=== PATIENT | female | born 1960 | race Caucasian/White ===

== ENCOUNTER 2020-01-12 12:38 | Inpatient (IN) | payer OTHER ==
[2020-01-12] MEDS ORDERED: PANTOPRAZOLE 40 MG/10 ML VIAL IVP STA (13:00)
[2020-01-12] MEDS ORDERED: ONDANSETRON 4 MG/2 ML VIAL IVP STA (13:00)
[2020-01-12] MEDS ORDERED: MORPHINE SULFATE 4 MG/ML SYRINGE IVP STA (13:05)
--- NOTE | 2020-01-12 13:34 | ED ---
Abdominal Pain HPI - General Chief Complaint: Abdominal Pain Stated Complaint: Chest and abd pain Time Seen by Provider: 01/12/20 12:58 Source: patient, RN notes reviewed, old records reviewed Mode of arrival: ambulatory Limitations: no limitations - History of Present Illness Initial Comments: This is a 59-year-old female DF for evaluation patient is a poor strain secondary to severe pain severe epigastric pain abdominal pain right upper quadrant pain with nausea no active vomiting no fevers or travel history or sick contacts. No prior history of same. No history of surgery. Patient does have recent travel history from [place] but no other complaints Complaint: abdominal pain -: days(s) Location: diffuse, RUQ, epigastric Radiation: RUQ, epigastric Migration to: RUQ Severity: severe Severity scale (1-10): 10 Quality: stabbing Consistency: constant Improves With: nothing (Result Gilbert Diaz) Worsens With: nothing Associated Symptoms: nausea, vomiting Treatments Prior to Arrival: prescription analgesics - Related Data Allergies Allergy/AdvReac Type Severity Reaction Status Date / Time No Known Allergies Allergy Verified 01/12/20 12:49 Review of Systems ROS Statement: Those systems with pertinent positive or pertinent negative responses have been documented in the HPI. ROS Other: All systems not noted in ROS Statement are negative. Past Medical History Past Medical History: Hyperlipidemia History of Any Multi-Drug Resistant Organisms: None Reported Past Surgical History: Joint Replacement Additional Past Surgical History / Comment(s): eye Past Psychological History: No Psychological Hx Reported Smoking Status: Never smoker Past Alcohol Use History: Occasional Past Drug Use History: None Reported General Exam Limitations: no limitations General appearance: alert, anxious, in distress (Secondary to pain) Head exam: Present: atraumatic, normocephalic, normal inspection Eye exam: Present: normal appearance, PERRL, EOMI. Absent: scleral icterus, conjunctival injection, periorbital swelling ENT exam: Present: normal exam, mucous membranes moist Neck exam: Present: normal inspection. Absent: tenderness, meningismus, lymphadenopathy Respiratory exam: Present: normal lung sounds bilaterally. Absent: respiratory distress, wheezes, rales, rhonchi, stridor Cardiovascular Exam: Present: regular rate, normal rhythm, normal heart sounds. Absent: systolic murmur, diastolic murmur, rubs, gallop, clicks GI/Abdominal exam: Present: soft, distended, tenderness (S labwork quadrant), normal bowel sounds. Absent: guarding, rebound, rigid Extremities exam: Present: normal inspection, full ROM, normal capillary refill. Absent: tenderness, pedal edema, joint swelling, calf tenderness Back exam: Present: normal inspection Neurological exam: Present: alert, oriented X3, CN II-XII intact Psychiatric exam: Present: normal affect, normal mood Skin exam: Present: warm, dry, intact, normal color. Absent: rash Course Vital Signs 01/12/20 01/12/20 01/12/20 12:46 12:49 13:49 Temperature 98.7 F Pulse Rate 67 Respiratory 18 20 20 Rate Blood Pressure 139/68 O2 Sat by Pulse 98 Oximetry 01/12/20 14:49 Temperature Pulse Rate 68 Respiratory 20 Rate Blood Pressure 126/74 O2 Sat by Pulse 98 Oximetry - Reevaluation(s) Reevaluation #1: 01/12/20 14:59 Medical records reviewed Reevaluation #2: 01/12/20 14:59 Pain is severe but improved Medical Decision Making - Medical Decision Making 59 female DF for eval of significant abdominal pain pain patient does have significant gallstone pancreatitis will admit for both GI and surgical consultation, pain control - Lab Data Result diagrams: 01/12/20 13:51 01/12/20 13:51 Lab Results 01/12/20 01/12/20 01/12/20 Range/Units 13:50 13:51 13:51 WBC 9.8 (3.8-10.6) k/uL RBC 5.39 (3.80-5.40) m/uL Hgb 15.7 (11.4-16.0) gm/dL Hct 48.0 H (34.0-46.0) % MCV 89.1 (80.0-100.0) fL MCH 29.1 (25.0-35.0) pg MCHC 32.7 (31.0-37.0) g/dL RDW 13.4 (11.5-15.5) % Plt Count 246 (150-450) k/uL Neutrophils % 80 % Lymphocytes % 12 % Monocytes % 6 % Eosinophils % 1 % Basophils % 0 % Neutrophils # 7.8 H (1.3-7.7) k/uL Lymphocytes # 1.2 (1.0-4.8) k/uL Monocytes # 0.6 (0-1.0) k/uL Eosinophils # 0.1 (0-0.7) k/uL Basophils # 0.0 (0-0.2) k/uL Sodium 137 (137-145) mmol/L Potassium 4.0 (3.5-5.1) mmol/L Chloride 105 (98-107) mmol/L Carbon Dioxide 22 (22-30) mmol/L Anion Gap 10 mmol/L BUN 11 (7-17) mg/dL Creatinine 0.75 (0.52-1.04) mg/dL Est GFR (CKD-EPI)AfAm >90 (>60 ml/min/1.73 sqM) Est GFR (CKD-EPI)NonAf 86 (>60 ml/min/1.73 sqM) Glucose 131 H (74-99) mg/dL Plasma Lactic Acid Genaro (0.7-2.0) mmol/L Calcium 9.9 (8.4-10.2) mg/dL Total Bilirubin 1.7 H (0.2-1.3) mg/dL AST 148 H (14-36) U/L ALT 110 H (4-34) U/L Alkaline Phosphatase 150 H (38-126) U/L Creatine Kinase 74 (30-135) U/L Troponin I (0.000-0.034) ng/mL Total Protein 7.7 (6.3-8.2) g/dL Albumin 4.6 (3.5-5.0) g/dL Amylase 2013 H* (30-110) U/L Lipase >80378 H (23-300) U/L Urine Color Yellow Urine Appearance Clear (Clear) Urine pH 5.5 (5.0-8.0) Ur Specific Seymour 1.014 (1.001-1.035) Urine Protein Negative (Negative) Urine Glucose (UA) Negative (Negative) Urine Ketones Negative (Negative) Urine Blood Negative (Negative) Urine Nitrite Negative (Negative) Urine Bilirubin Negative (Negative) Urine Urobilinogen <2.0 (<2.0) mg/dL Ur Leukocyte Esterase Negative (Negative) 01/12/20 01/12/20 Range/Units 13:51 13:51 WBC (3.8-10.6) k/uL RBC (3.80-5.40) m/uL Hgb (11.4-16.0) gm/dL Hct (34.0-46.0) % MCV (80.0-100.0) fL MCH (25.0-35.0) pg MCHC (31.0-37.0) g/dL RDW (11.5-15.5) % Plt Count (150-450) k/uL Neutrophils % % Lymphocytes % % Monocytes % % Eosinophils % % Basophils % % Neutrophils # (1.3-7.7) k/uL Lymphocytes # (1.0-4.8) k/uL Monocytes # (0-1.0) k/uL Eosinophils # (0-0.7) k/uL Basophils # (0-0.2) k/uL Sodium (137-145) mmol/L Potassium (3.5-5.1) mmol/L Chloride (98-107) mmol/L Carbon Dioxide (22-30) mmol/L Anion Gap mmol/L BUN (7-17) mg/dL Creatinine (0.52-1.04) mg/dL Est GFR (CKD-EPI)AfAm (>60 ml/min/1.73 sqM) Est GFR (CKD-EPI)NonAf (>60 ml/min/1.73 sqM) Glucose (74-99) mg/dL Plasma Lactic Acid Genaro 1.5 (0.7-2.0) mmol/L Calcium (8.4-10.2) mg/dL Total Bilirubin (0.2-1.3) mg/dL AST (14-36) U/L ALT (4-34) U/L Alkaline Phosphatase (38-126) U/L Creatine Kinase (30-135) U/L Troponin I <0.012 (0.000-0.034) ng/mL Total Protein (6.3-8.2) g/dL Albumin (3.5-5.0) g/dL Amylase (30-110) U/L Lipase (23-300) U/L Urine Color Urine Appearance (Clear) Urine pH (5.0-8.0) Ur Specific Seymour (1.001-1.035) Urine Protein (Negative) Urine Glucose (UA) (Negative) Urine Ketones (Negative) Urine Blood (Negative) Urine Nitrite (Negative) Urine Bilirubin (Negative) Urine Urobilinogen (<2.0) mg/dL Ur Leukocyte Esterase (Negative) - Radiology Data Radiology results: report reviewed (CT abdomen and pelvis ultrasound to show gallstone pancreatitis), image reviewed Disposition Clinical Impression: Abdominal pain, Acute gallstone pancreatitis Disposition: ADMITTED IP TO THIS HOSP Condition: Fair Is patient prescribed a controlled substance at d/c from ED?: No Referrals: Nonstaff,Physician [Primary Care Provider] - 1-2 days
[2020-01-12] MEDS: SODIUM CHLORIDE 0.9% 1,000 ML IV STA ×2 (14:07→17:31)
[2020-01-12 14:12] LABS: Basophils % (A) 0 %; Eosinophils # (A) 0.1 k/uL (0-0.7); Eosinophils % (A) 1 %; HGB 15.7 gm/dL (11.4-16.0); Lymphocytes # (A) 1.2 k/uL (1.0-4.8); Lymphocytes % (A) 12 %; MCH 29.1 pg (25.0-35.0); MCHC 32.7 g/dL (31.0-37.0); MCV 89.1 fL (80.0-100.0); Mean Platelet Volume 7.9; Monocytes # (A) 0.6 k/uL (0-1.0); Monocytes % (A) 6 %; Neutrophils # (A) 7.8 k/uL (1.3-7.7); Neutrophils % (A) 80 %; Platelet Count 246 k/uL (150-450); RBC 5.39 m/uL (3.80-5.40); RDW 13.4 % (11.5-15.5); WBC 9.8 k/uL (3.8-10.6)
[2020-01-12 14:14] LABS: Appearance,Urine Clear (Clear); Bilirubin,Urine Negative (Negative); Blood,Urine Negative (Negative); Color,Urine Yellow; Glucose,Urine (UA) Negative (Negative); Ketones,Urine Negative (Negative); Leukocyte Esterase,Urine Negative (Negative); Nitrite,Urine Negative (Negative); PH, Urine 5.5 (5.0-8.0); Protein,Urine Negative (Negative); Specific Gravity,Urine 1.014 (1.001-1.035); Urobilinogen,Urine <2.0 mg/dL (<2.0)
[2020-01-12 14:20] LABS: ALT 110 U/L (4-34); AST 148 U/L (14-36); African American GFR (CKD) >90 (>60 ml/min/1.73 sqM); Albumin 4.6 g/dL (3.5-5.0); Alkaline Phosphatase 150 U/L (38-126); Anion Gap 10 mmol/L; Blood Urea Nitrogen 11 mg/dL (7-17); Calcium 9.9 mg/dL (8.4-10.2); Carbon Dioxide 22 mmol/L (22-30); Chloride 105 mmol/L (98-107); Creatine Kinase 74 U/L (30-135); Glucose 131 mg/dL (74-99); Non-African American GFR(CKD) 86 (>60 ml/min/1.73 sqM); Sodium 137 mmol/L (137-145); Total Bilirubin 1.7 mg/dL (0.2-1.3); Total Protein 7.7 g/dL (6.3-8.2)
[2020-01-12 14:37] LABS: Amylase 2013 U/L (30-110)
--- NOTE | 2020-01-12 14:43 | CT ---
EXAMINATION TYPE: CT abdomen pelvis w con DATE OF EXAM: 01/12/2020 COMPARISON: NONE HISTORY: 59-year-old female Generalized abdominal pain since yesterday and vomiting. TECHNIQUE: Contiguous axial scanning of the abdomen and pelvis following administration of 100 ml Iso marciano 300 IV contrast. Delayed images through the kidneys and coronal/sagittal reconstructions perform ed. CT DLP: 1042 mGycm Automated exposure control for dose reduction was used. FINDINGS: Heart normal size without pericardial effusion. Some strandy atelectasis or scarring at the lung base s without pleural effusion. Tiny hiatal hernia. A couple hepatic hypodensities measuring up to 8 mm, too small for accurate CT characterization, like ly cysts. Portal venous system is patent. Main bile duct prominent at 8 mm. There may be tiny dependent gallstone, axial image 30. No abnormal gallbladder distention. Adrenal glands and kidneys appear within normal limits. Peripherally calcified, smooth walled cystic lesion upper pole of the spleen measuring 26 cm, likely a pseudocyst. Mild peripancreatic fat stranding especially along the inferior aspect of the pancreatic body/tail. N o fluid collection is identified. Scattered prominent but nonenlarged mesenteric lymph nodes measuring up to 5 mm. No dilated small bowel, free fluid, or free air. Mild stool burden. Sigmoid diverticulosis. No pericolonic inflammatory change. Bladder nondistended. Uterus anteverted. Both ovaries are visualized. No abnormal fluid collection in the pelvis or pelvic lymphadenopathy. Bones: Prominent artifacts from the patient's right thoracoplasty. Mild to moderate degenerative mahan ge of the left hip. Moderate to advanced degenerative disc disease throughout the lumbar spine. IMPRESSION: 1. PERIPANCREATIC FAT STRANDING, GREATEST ALONG THE PANCREATIC BODY/TAIL REGION. CORRELATE FOR ACUTE INTERSTITIAL PANCREATITIS. NO ABNORMAL FLUID COLLECTION. 2. PROMINENT MAIN BILE DUCT AT 8 MM MAY BE CHRONIC IN THIS PATIENT. CORRELATE WITH ALKALINE PHOSPHATA SE AND BILIRUBIN LEVELS TO EXCLUDE THE POSSIBILITY OF AN EARLY BILIARY OBSTRUCTION. 3. SUSPECT A TINY DEPENDENT GALLSTONE. 4 SIGMOID DIVERTICULOSIS WITHOUT ACUTE DIVERTICULITIS. TINY HIATAL HERNIA.
[2020-01-12] MEDS ORDERED: HYDROmorphone 1 MG/ML 1 ML SYRINGE IVP STA (14:50)
[2020-01-12] MEDS ORDERED: ONDANSETRON 4 MG/2 ML VIAL IVP PRN (15:30)
[2020-01-12] MEDS ORDERED: MORPHINE SULFATE 4 MG/ML SYRINGE IVP PRN (15:30)
--- NOTE | 2020-01-12 15:53 | US ---
EXAMINATION TYPE: US gallbladder DATE OF EXAM: 01/12/2020 COMPARISON: CT same date CLINICAL HISTORY: temo. Epigastric pain; generalized abd pain, vomiting yesterday EXAM MEASUREMENTS: Liver Length: 15.9 cm Gallbladder Wall: 0.2 cm CBD: 0.6 cm Right Kidney: 10.3 x 5.7 x 4.1 cm Pancreas: Overall hyperechoic, there is some mixed low echogenicity however Liver: no masses seen Gallbladder: mobile, small stones vs. sludge noted within gallbladder, no pericholecystic fluid is i dentified Evidence for sonographic Call's sign: yes CBD: upper limits of normal Right Kidney: No hydronephrosis or masses seen IMPRESSION: Correlate for pancreatitis. Cholelithiasis. Additional findings above.
--- NOTE | 2020-01-12 16:23 | P.HPIM ---
History of Present Illness Patient is a pleasant 59-year-old female came in with the diffuse abdominal pain predominantly severe and epigastric area and the right upper quadrant area. Patient pain is sharp in nature and nonradiating is with nausea vomiting all symptoms started today. Patient had is visiting from [place]. Patient denied alcohol use.. Patient is found to have pancreatitis with elevated liver enzymes. Ultrasound of the abdomen and CT of the abdomen was reviewed and the ultrasound of the abdomen showed gallstones. CT of the abdomen is consistent with pancreatitis. There is no necrotizing pancreatitis. Patient believed it may be due to acid reflux and has been taking antacid medications Review of Systems REVIEW OF SYSTEMS: CONSTITUTIONAL: No fever, no malaise, no fatigue. HEENT: No recent visual problems or hearing problems. Denied any sore throat. CARDIOVASCULAR: No chest pain, orthopnea, PND, no palpitations, no syncope. PULMONARY: No shortness of breath, no cough, no hemoptysis. GASTROINTESTINAL: As mentioned in history of present illness NEUROLOGICAL: No headaches, no weakness, no numbness. HEMATOLOGICAL: Denies any bleeding or petechiae. GENITOURINARY: Denies any burning micturition, frequency, or urgency. MUSCULOSKELETAL/RHEUMATOLOGICAL: Denies any joint pain, swelling, or any muscle pain. ENDOCRINE: Denies any polyuria or polydipsia. The rest of the 14-point review of systems is negative. Past Medical History Past Medical History: Hyperlipidemia History of Any Multi-Drug Resistant Organisms: None Reported Past Surgical History: Joint Replacement Additional Past Surgical History / Comment(s): eye Past Psychological History: No Psychological Hx Reported Smoking Status: Never smoker Past Alcohol Use History: Occasional Past Drug Use History: None Reported Medications and Allergies Allergies Allergy/AdvReac Type Severity Reaction Status Date / Time No Known Allergies Allergy Verified 01/12/20 12:49 Physical Exam Vitals: Vital Signs Temp Pulse Resp BP Pulse Ox 01/12/20 14:49 68 20 126/74 98 01/12/20 13:49 20 01/12/20 12:49 20 01/12/20 12:46 98.7 F 67 18 139/68 98 Intake and Output 01/12/20 01/12/20 01/12/20 06:59 14:59 22:59 Other: Weight 77.292 kg PHYSICAL EXAMINATION: GENERAL: The patient is alert and oriented x3, not in any acute distress. Well developed, well nourished. HEENT: Pupils are round and equally reacting to light. EOMI. No scleral icterus. No conjunctival pallor. Normocephalic, atraumatic. No pharyngeal erythema. No thyromegaly. CARDIOVASCULAR: S1 and S2 present. No murmurs, rubs, or gallops. PULMONARY: Chest is clear to auscultation, no wheezing or crackles. ABDOMEN: Soft, tenderness in the epigastric area no rebound or rigidity, n ondistended, normoactive bowel sounds. No palpable organomegaly. MUSCULOSKELETAL: No joint swelling or deformity. EXTREMITIES: No cyanosis, clubbing, or pedal edema. NEUROLOGICAL: Gross neurological examination did not reveal any focal deficits. SKIN: No rashes. Results CBC & Chem 7: 01/12/20 13:51 01/12/20 13:51 Labs: Abnormal Lab Results - Last 24 Hours (Table) 01/12/20 01/12/20 Range/Units 13:51 13:51 Hct 48.0 H (34.0-46.0) % Neutrophils # 7.8 H (1.3-7.7) k/uL Glucose 131 H (74-99) mg/dL Total Bilirubin 1.7 H (0.2-1.3) mg/dL AST 148 H (14-36) U/L ALT 110 H (4-34) U/L Alkaline Phosphatase 150 H (38-126) U/L Amylase 2013 H* (30-110) U/L Lipase >65765 H (23-300) U/L Assessment and Plan Plan: -Gallstone pancreatitis: Patient will be nothing by mouth patient will be continued on IV fluids and Protonix. Patient does have elevated liver enzymes although patient doesn't have any choledocholithiasis. No evidence of ascending cholangitis. General surgery and gastroneurology will be consulted.. Will use morphine and IV Tylenol for pain -Elevated liver enzymes secondary to gallstones: -
[2020-01-12] MEDS: ACETAMINOPHEN IV (For NPO) 1,000 MG in EMPTY BAG 1 BAG IVPB PRN (22:54)
--- NOTE | 2020-01-13 06:14 | P.GSCN ---
History of Present Illness Consult date: 01/12/20 History of present illness: Patient seen and evaluated. She reports bilateral upper abdominal pain started within the last 1 day bring her to emergency room. She reports family history of gallbladder disease and her mother including grand mother who had blocked common bile duct. She reports improvement of pain with narcotics. No current nausea. No previous events. Secondary to gallstone pancreatitis, general surgery is consulted. ABDOMEN: No peritonitis. STUDIES: CT of the abdomen and pelvis independently reviewed by me demonstrating a large cyst 6 mass of the spleen over 6 cm along the superior pole. Separate stages of peripancreatic inflammation. Gallbladder distended with small stone along the infundibulum. Ultrasound of the gallbladder independently reviewed demonstrating gallbladder wall less than 2 mm. Additionally, stone found within the infundibulum of the gallbladder. LABS: Lipase markedly elevated at over 20,000. ASSESSMENT: 1. Gallstone pancreatitis PLAN: 1. Recommend cholecystectomy for gallstone pancreatitis following resolution of pancreatitis which may also be done as outpatient. 2. Will need cardiac risk assessment. 3. Alternatively, outpatient management feasible pending cardiac risk assessment 4. Repeat labs including for a lipase and LFTs. May need an MRCP to exclude choledocholithiasis. Past Medical History Past Medical History: Hyperlipidemia Additional Past Medical History / Comment(s): ovarian cysts History of Any Multi-Drug Resistant Organisms: None Reported Past Surgical History: Appendectomy, Joint Replacement, Orthopedic Surgery Additional Past Surgical History / Comment(s): cataract with implant right eye, ACL left knee, right hip replacement. Past Anesthesia/Blood Transfusion Reactions: Previous Problems w/ Anesthesia Additional Past Anesthesia/Blood Transfusion Reaction / Comm: takes a while for anesthesia to wear off Past Psychological History: No Psychological Hx Reported Smoking Status: Never smoker Past Alcohol Use History: Occasional Past Drug Use History: None Reported - Past Family History Father Family Medical History: Cancer Additional Family Medical History / Comment(s): bladder cancer, heart troubles, low blood pressure Mother Family Medical History: Hypertension, Osteoarthritis (OA) Medications and Allergies Home Medications Medication Instructions Recorded Confirmed Type Atorvastatin [Lipitor] 40 mg PO HS 01/12/20 01/12/20 History Loratadine 10 mg PO HS 01/12/20 01/12/20 History Multivitamins, Thera [Multivitamin 1 tab PO DAILY 01/12/20 01/12/20 History (formulary)] Allergies Allergy/AdvReac Type Severity Reaction Status Date / Time No Known Allergies Allergy Verified 01/12/20 17:19 Surgical - Exam Vital Signs Temp Pulse Resp BP Pulse Ox 98.7 F 67 18 139/68 98 01/12/20 12:46 01/12/20 12:46 01/12/20 12:46 01/12/20 12:46 01/12/20 12:46 Results - Labs 01/12/20 13:51 01/12/20 13:51 Abnormal Lab Results - Last 24 Hours (Table) 01/12/20 01/12/20 Range/Units 13:51 13:51 Hct 48.0 H (34.0-46.0) % Neutrophils # 7.8 H (1.3-7.7) k/uL Glucose 131 H (74-99) mg/dL Total Bilirubin 1.7 H (0.2-1.3) mg/dL AST 148 H (14-36) U/L ALT 110 H (4-34) U/L Alkaline Phosphatase 150 H (38-126) U/L Amylase 2013 H* (30-110) U/L Lipase >73806 H (23-300) U/L Diabetes panel 01/12/20 Range/Units 13:51 Sodium 137 (137-145) mmol/L Potassium 4.0 (3.5-5.1) mmol/L Chloride 105 (98-107) mmol/L Carbon Dioxide 22 (22-30) mmol/L BUN 11 (7-17) mg/dL Creatinine 0.75 (0.52-1.04) mg/dL Glucose 131 H (74-99) mg/dL Calcium 9.9 (8.4-10.2) mg/dL AST 148 H (14-36) U/L ALT 110 H (4-34) U/L Alkaline Phosphatase 150 H (38-126) U/L Total Protein 7.7 (6.3-8.2) g/dL Albumin 4.6 (3.5-5.0) g/dL Calcium panel 01/12/20 Range/Units 13:51 Calcium 9.9 (8.4-10.2) mg/dL Albumin 4.6 (3.5-5.0) g/dL Pituitary panel 01/12/20 Range/Units 13:51 Sodium 137 (137-145) mmol/L Potassium 4.0 (3.5-5.1) mmol/L Chloride 105 (98-107) mmol/L Carbon Dioxide 22 (22-30) mmol/L BUN 11 (7-17) mg/dL Creatinine 0.75 (0.52-1.04) mg/dL Glucose 131 H (74-99) mg/dL Calcium 9.9 (8.4-10.2) mg/dL Adrenal panel 01/12/20 Range/Units 13:51 Sodium 137 (137-145) mmol/L Potassium 4.0 (3.5-5.1) mmol/L Chloride 105 (98-107) mmol/L Carbon Dioxide 22 (22-30) mmol/L BUN 11 (7-17) mg/dL Creatinine 0.75 (0.52-1.04) mg/dL Glucose 131 H (74-99) mg/dL Calcium 9.9 (8.4-10.2) mg/dL Total Bilirubin 1.7 H (0.2-1.3) mg/dL AST 148 H (14-36) U/L ALT 110 H (4-34) U/L Alkaline Phosphatase 150 H (38-126) U/L Total Protein 7.7 (6.3-8.2) g/dL Albumin 4.6 (3.5-5.0) g/dL
[2020-01-13] MEDS: ACETAMINOPHEN IV (For NPO) 1,000 MG in EMPTY BAG 1 BAG IVPB PRN (06:16)
[2020-01-13 08:18] LABS: HCT 38.4 % (34.0-46.0); MCH 29.5 pg (25.0-35.0); MCHC 32.8 g/dL (31.0-37.0); Mean Platelet Volume 8.3; Platelet Count 179 k/uL (150-450); RBC 4.26 m/uL (3.80-5.40); RDW 13.5 % (11.5-15.5); WBC 9.2 k/uL (3.8-10.6)
[2020-01-13 08:27] LABS: ALT 97 U/L (4-34); AST 52 U/L (14-36); African American GFR (CKD) >90 (>60 ml/min/1.73 sqM); Albumin 3.2 g/dL (3.5-5.0); Alkaline Phosphatase 103 U/L (38-126); Anion Gap 6 mmol/L; Blood Urea Nitrogen 11 mg/dL (7-17); Calcium 8.7 mg/dL (8.4-10.2); Carbon Dioxide 22 mmol/L (22-30); Chloride 109 mmol/L (98-107); Glucose 97 mg/dL (74-99); Non-African American GFR(CKD) >90 (>60 ml/min/1.73 sqM); Sodium 137 mmol/L (137-145); Total Protein 5.9 g/dL (6.3-8.2)
[2020-01-13] MEDS: PANTOPRAZOLE 40 MG/10 ML VIAL IVP SCH (08:36)
[2020-01-13 08:37] LABS: HGB 12.6 gm/dL (11.4-16.0)
[2020-01-13] MEDS: SODIUM CHLORIDE 0.9% 1,000 ML IV SCH ×3 (11:04→23:07)
--- NOTE | 2020-01-13 12:46 | P.PN ---
Subjective Progress Note Date: 01/13/20 CHIEF COMPLAINT: Gallstone pancreatitis HISTORY OF PRESENT ILLNESS: Patient examined this morning the bedside with Dr. Tanner. Patient denies any pain at rest. She reports mild pain when she was up ambulating to the bathroom. Rating pain /10. Lipase 3644. Patient reports she is in [facility] and resides in [place]. She states she is supposed to return to [place] on Thursday. PHYSICAL EXAM: VITAL SIGNS: Reviewed GENERAL: Well-developed in no acute distress. HEENT: No sclera icterus. Extraocular movements grossly intact. Moist buccal mucosa. Head is atraumatic, normocephalic. Hears conversational speech. No nasal d rainage. NECK: Supple without lymphadenopathy. CHEST: Non-labored respirations and equal bilateral excursions. CARDIOVASCULAR: Regular rate with regular rhythm. Palpable 2+ radial pulses. ABDOMEN: Soft. Nondistended. Nontender. MUSCULOSKELETAL: No clubbing or cyanosis. NEUROLOGIC: No focal or lateralizing signs. Cranial nerves II through XII grossly intact. PSYCH: Appropriate affect. Alert and oriented to person, place and time. SKIN: Well perfused. Good skin turgor. ASSESSMENT: 1. Gallstone pancreatitis PLAN: -Continue clear liquid diet for today secondary to elevated lipase -Continue IV fluids -Repeat labs in a.m. -Patient lives in [place] and is planning to return home on Thursday. Discussed surgical options with patient. Patient prefers to have surgery in home state. Patient was instructed to follow-up SILVINO with her primary care physician in [place] and can be referred to a general surgeon for cholecystectomy. Nurse practitioner note has been reviewed by physician. Signing provider agrees with the documented findings, assessment, and plan of care. Objective - Vital Signs Vital signs: Vital Signs Temp 98 F 01/13/20 07:00 Pulse 73 01/13/20 07:00 Resp 18 01/13/20 07:00 BP 125/81 01/13/20 07:00 Pulse Ox 93 L 01/13/20 07:00 Intake & Output 01/12/20 01/13/20 01/13/20 18:59 06:59 18:59 Output Total 300 Balance -300 Weight 77.292 kg Output: Urine 300 Other: # Voids 1 - Labs CBC & Chem 7: 01/13/20 07:45 07/03/20 07:45 Labs: Abnormal Lab Results - Last 24 Hours (Table) 01/12/20 01/12/20 01/13/20 Range/Units 13:51 13:51 07:45 Hct 48.0 H (34.0-46.0) % Neutrophils # 7.8 H (1.3-7.7) k/uL Chloride 109 H (98-107) mmol/L Glucose 131 H (74-99) mg/dL Total Bilirubin 1.7 H (0.2-1.3) mg/dL AST 148 H 52 H (14-36) U/L ALT 110 H 97 H (4-34) U/L Alkaline Phosphatase 150 H (38-126) U/L Total Protein 5.9 L (6.3-8.2) g/dL Albumin 3.2 L (3.5-5.0) g/dL Amylase 2013 H* (30-110) U/L Lipase >86493 H 3644 H (23-300) U/L
[2020-01-13] MEDS ORDERED: IBUPROFEN 400 MG TAB PO PRN (14:33)
[2020-01-13] MEDS ORDERED: ALPRAZolam 0.25 MG TAB PO PRN (14:35)
[2020-01-13] MEDS ORDERED: HYDROcodone/APAP 5-325MG 1 EACH TAB PO PRN (14:35)
[2020-01-13] MEDS ORDERED: TEMAZEPAM 15 MG CAP PO PRN (14:35)
--- NOTE | 2020-01-13 15:48 | PN ---
PROGRESS NOTE DATE OF SERVICE: 01/13/2020 This 59-year-old woman who was admitted with gallstone pancreatitis, being closely monitored. No chest pain. No palpitations. No fever. Amylase and lipase is still elevated. PHYSICAL EXAMINATION: Alert and oriented x3. Pulse is 73. Blood pressure 124/81, respiration 18, temperature 98 degrees, pulse ox 97% on room air. HEENT: Conjunctivae normal. NECK: No JVD. CARDIOVASCULAR: S1, S2 muffled. RESPIRATORY: Breath sounds diminished in the bases. No rhonchi. No crackles. ABDOMEN: Soft, mild diffuse discomfort. LEGS are no edema. No swelling. NERVOUS SYSTEM: No focal deficits. LABS: CBC within normal limits otherwise AST is 52 and ALT is 97. Albumin is 3.2. Amylase is not available. Lipase is 364. ASSESSMENT: 1. Acute gallstone pancreatitis with severe abdominal pain. 2. Elevated AST/ALT and total bilirubin secondary to obstructive jaundice. 3. History of hyperlipidemia. 4. History of ovarian cyst. 5. History of appendectomy. 6. History of degenerative joint disease. 7. History of cataracts. RECOMMENDATIONS AND DISCUSSION: This 59-year-old woman who presented with multiple complex medical issues, we will monitor the patient closely. Continue the current medications, symptomatic treatment. Repeat amylase, lipase. Closely follow with Gastroenterology surgery. Guarded prognosis. Further recommendations to follow. We will repeat a comprehensive metabolic panel also. MMODL / IJN: [id number] /
[2020-01-13 16:19] VITALS: BMI 29.2
[2020-01-13] MEDS: HEPARIN SODIUM,PORCINE 5,000 UNIT/ML 1 ML VIAL SQ SCH (20:04)
[2020-01-14] MEDS: ACETAMINOPHEN TAB 325 MG TAB PO PRN ×2 (05:54→15:02)
[2020-01-14 06:26] LABS: Basophils % (A) 0 %; Eosinophils # (A) 0.2 k/uL (0-0.7); Eosinophils % (A) 3 %; HCT 38.7 % (34.0-46.0); Lymphocytes # (A) 1.1 k/uL (1.0-4.8); Lymphocytes % (A) 13 %; MCH 30.2 pg (25.0-35.0); MCHC 33.5 g/dL (31.0-37.0); MCV 90.1 fL (80.0-100.0); Mean Platelet Volume 8.2; Monocytes # (A) 0.4 k/uL (0-1.0); Monocytes % (A) 5 %; Neutrophils # (A) 6.5 k/uL (1.3-7.7); Neutrophils % (A) 78 %; Platelet Count 180 k/uL (150-450); RBC 4.29 m/uL (3.80-5.40); RDW 13.5 % (11.5-15.5); WBC 8.3 k/uL (3.8-10.6)
[2020-01-14 06:39] LABS: ALT 59 U/L (4-34); AST 25 U/L (14-36); African American GFR (CKD) >90 (>60 ml/min/1.73 sqM); Albumin 3.2 g/dL (3.5-5.0); Alkaline Phosphatase 101 U/L (38-126); Amylase 195 U/L (30-110); Anion Gap 5 mmol/L; Blood Urea Nitrogen 6 mg/dL (7-17); Calcium 8.7 mg/dL (8.4-10.2); Carbon Dioxide 23 mmol/L (22-30); Chloride 109 mmol/L (98-107); Glucose 101 mg/dL (74-99); Non-African American GFR(CKD) >90 (>60 ml/min/1.73 sqM); Potassium 3.7 mmol/L (3.5-5.1); Sodium 137 mmol/L (137-145); Total Protein 5.8 g/dL (6.3-8.2)
[2020-01-14] MEDS: HEPARIN SODIUM,PORCINE 5,000 UNIT/ML 1 ML VIAL SQ SCH ×2 (08:18→21:09)
[2020-01-14] MEDS: PANTOPRAZOLE 40 MG/10 ML VIAL IVP SCH (08:18)
--- NOTE | 2020-01-14 10:36 | P.CONS ---
History of Present Illness - Reason for Consult Consult date: 01/13/20 Elevated liver enzymes, pancreatitis Requesting physician: Italo Webb - Chief Complaint Abdominal pain - History of Present Illness 59-year-old female with past medical history significant for hyperlipidemia who presented to the hospital with complaints of abdominal pain. Patient reports developing pain in her abdomen which she describes as occurring in the epigastric region and right upper quadrant of her abdomen. The pain was sharp and severe in nature without radiation. She reports that the pain started suddenly and was associated with nausea and vomiting. She has not had any prior episodes of similar pain. She currently is visiting from out [facility] and lives in [place]. On presentation to the hospital she was found to have computed tomography scan of the abdomen consistent with acute uncomplicated pancreatitis was significant for WBC 9.2, hemoglobin 12.6, platelet count 174,000 with elevated liver enzymes on presentation which subsequently improved with total bilirubin 1.7-1, alkaline phosphatase 152 103, AST 148-52 and ALT 110-97. Review of Systems REVIEW OF SYSTEMS: CONSTITUTIONAL: Denies any fevers, chills, weight change or fatigue. CARDIOVASCULAR: Denies any chest pain, palpitations high or low blood pressures RESPIRATORY: Denies any shortness of breath, hemoptysis or cough. GENITOURINARY: No dysuria or hematuria. MUSCULOSKELETAL: No weakness reported. SKIN: Denies any new rashes or lesions, jaundice or pallor. PSYCHIATRIC: Denies any depression or anxiety. NEUROLOGY: Denies headache, denies any new focal deficits. EARS/NOSE/THROAT: No recent hearing change, congestion, nasal discharge or sore throat. EYES: No pain in eyes, discharge or change in vision. GASTROINTESTINAL: As per HPI. Past Medical History Past Medical History: Hyperlipidemia Additional Past Medical History / Comment(s): ovarian cysts History of Any Multi-Drug Resistant Organisms: None Reported Past Surgical History: Appendectomy, Joint Replacement, Orthopedic Surgery Additional Past Surgical History / Comment(s): cataract with implant right eye, ACL left knee, right hip replacement. Past Anesthesia/Blood Transfusion Reactions: Previous Problems w/ Anesthesia Additional Past Anesthesia/Blood Transfusion Reaction / Comm: takes a while for anesthesia to wear off Past Psychological History: No Psychological Hx Reported Smoking Status: Never smoker Past Alcohol Use History: Occasional Past Drug Use History: None Reported - Past Family History Father Family Medical History: Cancer Additional Family Medical History / Comment(s): bladder cancer, heart troubles, low blood pressure Mother Family Medical History: Hypertension, Osteoarthritis (OA) Medications and Allergies Home Medications Medication Instructions Recorded Confirmed Type Atorvastatin [Lipitor] 40 mg PO HS 01/12/20 01/12/20 History Loratadine 10 mg PO HS 01/12/20 01/12/20 History Multivitamins, Thera [Multivitamin 1 tab PO DAILY 01/12/20 01/12/20 History (formulary)] Allergies Allergy/AdvReac Type Severity Reaction Status Date / Time No Known Allergies Allergy Verified 01/12/20 17:19 Physical Exam Vitals: Vital Signs Temp Pulse Pulse Pulse Resp BP BP 01/13/20 07:00 98 F 73 18 125/81 01/13/20 00:00 98.4 F 80 16 119/71 01/12/20 20:15 98.4 F 69 16 99/67 01/12/20 17:08 98.7 F 64 16 119/67 01/12/20 17:05 98.7 F 64 16 119/67 01/12/20 16:50 65 20 127/72 01/12/20 16:00 20 01/12/20 15:00 20 01/12/20 14:49 68 20 126/74 01/12/20 13:49 20 01/12/20 12:49 20 01/12/20 12:46 98.7 F 67 18 139/68 Pulse Ox 01/13/20 07:00 93 L 01/13/20 00:00 95 01/12/20 20:15 94 L 01/12/20 17:08 96 01/12/20 17:05 96 01/12/20 16:50 98 01/12/20 16:00 98 01/12/20 15:00 98 01/12/20 14:49 98 01/12/20 13:49 01/12/20 12:49 01/12/20 12:46 98 Intake and Output 01/12/20 01/13/20 01/13/20 22:59 06:59 14:59 Output Total 300 Balance -300 Output: Urine 300 Other: # Voids 1 Weight 77.292 kg On physical examination, patient appears comfortable in no apparent distress. HEAD: Normocephalic, atraumatic. EYES: No scleral icterus. No conjunctival injection. MOUTH: No lesions, tongue midline. NECK: Trachea midline, no gross abnormalities. CHEST: Clear to auscultation with no wheezing or rhonchi appreciated. HEART: Regular rate and rhythm. ABDOMEN: Soft, obese, mildly tender to palpation. Bowel sounds are positive. No organomegaly. No guarding or rigidity. EXTREMITIES: No pedal edema. SKIN: No rashes, no jaundice. NEUROLOGIC: Alert and oriented x3. No focal deficits. Results CBC & Chem 7: 01/14/20 06:07 01/14/20 06:07 Labs: Abnormal Lab Results - Last 24 Hours (Table) 01/12/20 01/12/20 01/13/20 Range/Units 13:51 13:51 07:45 Hct 48.0 H (34.0-46.0) % Neutrophils # 7.8 H (1.3-7.7) k/uL Chloride 109 H (98-107) mmol/L Glucose 131 H (74-99) mg/dL Total Bilirubin 1.7 H (0.2-1.3) mg/dL AST 148 H 52 H (14-36) U/L ALT 110 H 97 H (4-34) U/L Alkaline Phosphatase 150 H (38-126) U/L Total Protein 5.9 L (6.3-8.2) g/dL Albumin 3.2 L (3.5-5.0) g/dL Amylase 2013 H* (30-110) U/L Lipase >40742 H 3644 H (23-300) U/L CT scan - abdomen: report reviewed (Acute uncomplicated pancreatitis on computed tomography scan abdomen.) Assessment and Plan (1) Acute gallstone pancreatitis Narrative/Plan: 59-year-old female with a medical history significant for hyperlipidemia who presented to the hospital due to complaints of abdominal pain and was found to have acute complicated pancreatitis on CT imaging. Ultrasound showed cholelithiasis with no CBD dilation. Liver enzymes which were elevated on presentation at subsequently normalized. Suspicion is for acute uncomplicated gallstone pancreatitis. No evidence to suggest choledocholithiasis at this time. Patient currently receiving medical management. Current Visit: Yes Status: Acute Code(s): K85.10 - BILIARY ACUTE PANCREATITIS WITHOUT NECROSIS OR INFECTION SNOMED Code(s): 543757839 (2) Abdominal pain Current Visit: Yes Status: Acute Code(s): R10.9 - UNSPECIFIED ABDOMINAL PAIN SNOMED Code(s): 18198285 Plan: Supportive care Clear liquid diet, advance to low-fat diet as tolerated Continue IV fluids and pain control No plans for endoscopic evaluation at this time Patient will need cholecystectomy with timing to be determined, patient would prefer to have this done as an outpatient in [place] Continue monitor CBC, BMP, LFTs Thank you for allowing us to participate in the care of the patient
--- NOTE | 2020-01-14 13:19 | P.PN ---
Subjective Progress Note Date: 01/14/20 CHIEF COMPLAINT: Gallstone pancreatitis HISTORY OF PRESENT ILLNESS: The patient is a 59-year-old female who was admitted with severe epigastric abdominal pain and findings of gallstone pancreatitis. She reports moderate improvement of her abdominal pain. Patient does live out of state in [place]. She has been tolerating diet. ROS: No reports of nausea and vomiting. No fevers or chills. No new chest pain. No productive sputum PHYSICAL EXAM: VITAL SIGNS: Reviewed CONSTITUTIONAL: Well developed and in no acute distress. EYES: Conjuctivae without sclera icterus. Extraocular movements grossly intact. HEAD, EARS, NOSE, THROAT: Moist buccal mucosa. Head is atraumatic, normocephalic. Hears conversational speech. No nasal drainage. NECK: Supple. No thyroidomegaly. RESPIRATORY: Non-labored respirations and equal bilateral excursions. CARDIOVASCULAR: Palpable 2+ radial pulses. Regular rate. Regular rhythm. ABDOMEN: Soft. No peritonitis. MUSCULOSKELETAL: No gross deformity of the lower extremities noted. No clubbing. No cyanosis. SKIN: Good skin turgor. Well perfused. NEUROLOGIC: Cranial nerves II through XII grossly intact. No focal or lateralizing signs. PSYCH: Appropriate affect. Alert and oriented to person, place and time. CLINICAL LABS: White blood cell count normal 8.3, lipase down from over 20,000 to 839. LFTs improved. ASSESSMENT: 1. Gallstone pancreatitis PLAN: 1. Her abdominal pain is resolved and chemistries have moderately improved. 2. She lives out of state and is stable for discharge. 3. Surgery at home state with cholecystectomy described. 4. Low-fat diet described. Objective - Vital Signs Vital signs: Vital Signs Temp 97.9 F 01/14/20 11:16 Pulse 60 01/14/20 11:16 Resp 16 01/14/20 11:16 BP 128/84 01/14/20 11:16 Pulse Ox 96 01/14/20 11:16 Intake & Output 01/13/20 01/14/20 01/14/20 18:59 06:59 18:59 Intake Total 900 Balance 900 Weight 77.292 kg Intake: Intake, IV Titration 900 Amount Sodium Chloride 0.9% 1, 900 000 ml @ 100 mls/hr IV . Q10H [facility] Rx#:[id number] Other: Voiding Method Toilet Toilet # Voids 2 1 - Labs CBC & Chem 7: 01/14/20 06:07 01/14/20 06:07 Labs: Abnormal Lab Results - Last 24 Hours (Table) 01/14/20 Range/Units 06:07 Chloride 109 H (98-107) mmol/L BUN 6 L (7-17) mg/dL Glucose 101 H (74-99) mg/dL ALT 59 H (4-34) U/L Total Protein 5.8 L (6.3-8.2) g/dL Albumin 3.2 L (3.5-5.0) g/dL Amylase 195 H (30-110) U/L Lipase 839 H (23-300) U/L Assessment and Plan (1) Acute gallstone pancreatitis Current Visit: Yes Status: Acute Code(s): K85.10 - BILIARY ACUTE PANCREATITIS WITHOUT NECROSIS OR INFECTION SNOMED Code(s): 183342459
[2020-01-14] MEDS: SODIUM CHLORIDE 0.9% 1,000 ML IV SCH (16:40)
--- NOTE | 2020-01-14 20:15 | PN ---
PROGRESS NOTE DATE OF SERVICE: 01/14/2020 This 59-year-old woman was admitted with acute gallstone pancreatitis with severe abdominal pain is being closely monitored at this time. The patient had elevated AST, ALT. The patient is apparently from [place] and was planning to drive down there for possible surgery at this time. No chest pain. No palpitations. The enzymes are slightly elevated. PHYSICAL EXAM: Alert and oriented. Pulse is 60, blood pressure 128/84, respirations 16, temperature 97.9, pulse ox 96% on room air skin: HEENT: Conjunctivae are normal. NECK: No jugular venous distention. CARDIOVASCULAR SYSTEM: S1 and S2 muffled. RESPIRATORY: Breath sounds diminished in the bases, no rhonchi, no crackles. ABDOMEN: Soft. Mild diffuse discomfort otherwise no guarding, no rigidity, no tenderness, no rebound tenderness. Bowel sounds present, no ascites. LEGS: No edema. No swelling. NERVOUS SYSTEM: Higher functions are mentioned earlier. Moves all four limbs. No focal motor deficits. LYMPHATICS: No lymph nodes in the neck or axilla. SKIN: No rash. JOINTS: No active deformity. LAB STUDIES: CBC within normal. Sodium 137, potassium 3.7, glucose 101, AST is 25, and ALT is 59, total bilirubin is 5.8. Amylase is 195 and lipase is 839, improving. ASSESSMENT: 1. Acute gallstone pancreatitis with severe abdominal pain. 2. Elevated AST, ALT, total bilirubin secondary to obstructive jaundice. 3. History of hyperlipidemia. 4. History of ovarian cyst. 5. History of appendectomy. 6. History of degenerative joint disease. 7. History of cataracts. RECOMMENDATIONS AND DISCUSSION: In this 59-year-old woman who presented with multiple complex medical issues, we will monitor the patient closely. Continue the current management and symptomatic treatment. Otherwise at this time I would recommend repeat labs and advance diet. Closely monitor. Possible discharge in 24 hours if the labs are stable and patient is symptomatically better. The patient would like to go home. MMODL / IJN: [id number] /
--- NOTE | 2020-01-14 23:54 | P.PN ---
Subjective Progress Note Date: 01/14/20 Principal diagnosis: Abdominal pain, gallstone pancreatitis, elevated liver enzymes Patient seen lying in bed today reporting that her abdominal pain is improved. She is tolerated a liquid diet. No nausea or vomiting. Objective - Vital Signs Vital signs: Vital Signs Temp 99.2 F 01/14/20 05:51 Pulse 79 01/14/20 05:51 Resp 17 01/14/20 05:51 BP 127/77 01/14/20 05:51 Pulse Ox 95 01/14/20 05:51 Intake & Output 01/13/20 01/14/20 01/14/20 18:59 06:59 18:59 Intake Total 900 Balance 900 Weight 77.292 kg Intake: Intake, IV Titration 900 Amount Sodium Chloride 0.9% 1, 900 000 ml @ 100 mls/hr IV . Q10H [facility] Rx#:[id number] Other: Voiding Method Toilet Toilet # Voids 2 1 - Exam On physical examination, patient appears comfortable in no apparent distress. HEAD: Normocephalic, atraumatic. EYES: No scleral icterus. No conjunctival injection. MOUTH: No lesions, tongue midline. NECK: Trachea midline, no gross abnormalities. ABDOMEN: Soft, obese and less tender to palpation. Bowel sounds are positive. No organomegaly. No guarding or rigidity. EXTREMITIES: No pedal edema. SKIN: No rashes, no jaundice. NEUROLOGIC: Alert and oriented x3. No focal deficits. - Labs CBC & Chem 7: 01/14/20 06:07 01/14/20 06:07 Labs: Abnormal Lab Results - Last 24 Hours (Table) 01/14/20 Range/Units 06:07 Chloride 109 H (98-107) mmol/L BUN 6 L (7-17) mg/dL Glucose 101 H (74-99) mg/dL ALT 59 H (4-34) U/L Total Protein 5.8 L (6.3-8.2) g/dL Albumin 3.2 L (3.5-5.0) g/dL Amylase 195 H (30-110) U/L Lipase 839 H (23-300) U/L Assessment and Plan (1) Acute gallstone pancreatitis Narrative/Plan: 59-year-old female with a medical history significant for hyperlipidemia who presented to the hospital due to complaints of abdominal pain and was found to have acute complicated pancreatitis on CT imaging. Ultrasound showed cholelithiasis with no CBD dilation. Liver enzymes which were elevated on presentation at subsequently normalized. Suspicion is for acute uncomplicated gallstone pancreatitis. No evidence to suggest choledocholithiasis at this time. Patient currently receiving medical management. Current Visit: Yes Status: Acute Code(s): K85.10 - BILIARY ACUTE PANCREATITIS WITHOUT NECROSIS OR INFECTION SNOMED Code(s): 736688076 (2) Abdominal pain Current Visit: Yes Status: Acute Code(s): R10.9 - UNSPECIFIED ABDOMINAL PAIN SNOMED Code(s): 21502120 Plan: Supportive care Full liquid diet, advance to low-fat diet as tolerated Continue IV fluids and pain control No plans for endoscopic evaluation at this time Patient will need cholecystectomy with timing to be determined, patient would prefer to have this done as an outpatient in [place] Continue monitor CBC, BMP, LFTs Thank you for allowing us to participate in the care of the patient
[2020-01-15] MEDS: SODIUM CHLORIDE 0.9% 1,000 ML IV SCH (05:10)
[2020-01-15 07:22] LABS: Basophils % (A) 0 %; Eosinophils # (A) 0.5 k/uL (0-0.7); Eosinophils % (A) 6 %; HCT 37.4 % (34.0-46.0); HGB 12.9 gm/dL (11.4-16.0); Lymphocytes # (A) 1.5 k/uL (1.0-4.8); Lymphocytes % (A) 18 %; MCH 30.8 pg (25.0-35.0); MCHC 34.5 g/dL (31.0-37.0); MCV 89.1 fL (80.0-100.0); Mean Platelet Volume 8.7; Monocytes # (A) 0.4 k/uL (0-1.0); Monocytes % (A) 5 %; Neutrophils # (A) 5.6 k/uL (1.3-7.7); Neutrophils % (A) 70 %; Platelet Count 190 k/uL (150-450); RDW 13.3 % (11.5-15.5); WBC 8.1 k/uL (3.8-10.6)
[2020-01-15 07:32] LABS: ALT 44 U/L (4-34); AST 24 U/L (14-36); African American GFR (CKD) >90 (>60 ml/min/1.73 sqM); Albumin 3.1 g/dL (3.5-5.0); Alkaline Phosphatase 101 U/L (38-126); Amylase 60 U/L (30-110); Anion Gap 6 mmol/L; Blood Urea Nitrogen 5 mg/dL (7-17); Calcium 8.6 mg/dL (8.4-10.2); Carbon Dioxide 22 mmol/L (22-30); Chloride 109 mmol/L (98-107); Glucose 86 mg/dL (74-99); Non-African American GFR(CKD) >90 (>60 ml/min/1.73 sqM); Potassium 3.9 mmol/L (3.5-5.1); Sodium 137 mmol/L (137-145); Total Bilirubin 0.9 mg/dL (0.2-1.3); Total Protein 5.9 g/dL (6.3-8.2)
[2020-01-15] MEDS: PANTOPRAZOLE 40 MG/10 ML VIAL IVP SCH (08:37)
[2020-01-15] MEDS: HEPARIN SODIUM,PORCINE 5,000 UNIT/ML 1 ML VIAL SQ SCH (08:38)
--- NOTE | 2020-01-15 11:01 | P.PN ---
Subjective Progress Note Date: 01/15/20 CHIEF COMPLAINT: Gallstone pancreatitis HISTORY OF PRESENT ILLNESS: The patient is a 59-year-old female who was admitted with severe epigastric abdominal pain and findings of gallstone pancreatitis. Her abdominal pain is resolved. She tolerated oatmeal this morning without incident. Gallstone diet re-iterated. Patient lives in [place] and was on vacation desiring to go home for surgery. ROS: No reports of nausea and vomiting. No fevers or chills. No new chest pain. No productive sputum PHYSICAL EXAM: VITAL SIGNS: Reviewed. Stable CONSTITUTIONAL: Well developed and in no acute distress. EYES: Conjuctivae without sclera icterus. Extraocular movements grossly intact. HEAD, EARS, NOSE, THROAT: Moist buccal mucosa. Head is atraumatic, normocephalic. Hears conversational speech. No nasal drainage. NECK: Supple. No thyroidomegaly. RESPIRATORY: Non-labored respirations and equal bilateral excursions. CARDIOVASCULAR: Palpable 2+ radial pulses. Regular rate. Regular rhythm. ABDOMEN: Soft. No peritonitis. Non-tender MUSCULOSKELETAL: No gross deformity of the lower extremities noted. No clubbing. No cyanosis. SKIN: Good skin turgor. Well perfused. NEUROLOGIC: Cranial nerves II through XII grossly intact. No focal or lateralizing signs. PSYCH: Appropriate affect. Alert and oriented to person, place and time. CLINICAL LABS: White blood cell count normal, lipase down from over 20,000 to 839, now 299. LFTs normal with ALT down from 110 to 44. ASSESSMENT: 1. Gallstone pancreatitis PLAN: 1. Patient surgically cleared for discharge with outpatient cholecystectomy in [facility] 2. [place], low fat diet advised during travel Objective - Vital Signs Vital signs: Vital Signs Temp 98.5 F 01/15/20 05:07 Pulse 75 01/15/20 08:00 Resp 15 01/15/20 08:00 BP 123/72 01/15/20 05:07 Pulse Ox 95 01/15/20 05:07 Intake & Output 01/14/20 01/15/20 01/15/20 18:59 06:59 18:59 Intake Total 2089 Output Total 300 Balance -300 2089 Intake: Intake, IV Titration 1200 Amount Sodium Chloride 0.9% 1, 1200 000 ml @ 100 mls/hr IV . Q10H [facility] Rx#:[id number] Oral 890 Output: Urine 300 Other: Voiding Method Toilet Toilet Toilet # Voids 3 2 - Labs CBC & Chem 7: 01/15/20 06:12 01/15/20 06:12 Labs: Abnormal Lab Results - Last 24 Hours (Table) 01/15/20 Range/Units 06:12 Chloride 109 H (98-107) mmol/L BUN 5 L (7-17) mg/dL Creatinine 0.50 L (0.52-1.04) mg/dL ALT 44 H (4-34) U/L Total Protein 5.9 L (6.3-8.2) g/dL Albumin 3.1 L (3.5-5.0) g/dL Assessment and Plan (1) Acute gallstone pancreatitis Current Visit: Yes Status: Acute Code(s): K85.10 - BILIARY ACUTE PANCREATITI S WITHOUT NECROSIS OR INFECTION SNOMED Code(s): 782088562
[2020-01-15 12:08] VITALS: BP 121/73; PULSE 77; RESP 17; TEMP 98.3
--- NOTE | 2020-01-16 07:37 | DS ---
DISCHARGE SUMMARY DATE OF SERVICE: 01/15/2020. FINAL DIAGNOSES: 1. Acute gallstone pancreatitis with severe abdominal pain, improved. 2. Increased AST, ALT, total bilirubin secondary to obstructive jaundice. 3. History of hyperlipidemia. 4. History of ovarian cyst. 5. History of appendectomy. 6. History of degenerative joint disease. 7. History of cataract. DISCHARGE DISPOSITION: The patient will be discharged in stable condition with guarded prognosis. HISTORY OF PRESENT ILLNESS: This 59-year-old woman with a past medical history of multiple medical problems admitted with acute gallstone pancreatitis. Patient treated symptomatically, improved significantly. The patient originally from [place]. The patient would like to go back to [place] for further evaluation and treatment of the above mentioned multiple complex medical issues, and currently patient is stable and cleared by Surgery and Gastroenterology for discharge. The patient is keen to go home at this time. The patient will be discharged with the following advice and medications. On exam, vitals are stable. CARDIOVASCULAR: S1, S2 muffled. ABDOMEN: Soft. NERVOUS SYSTEM: No focal deficits. Amylase and lipase are normalized at this time. Other labs are reviewed. AST is 24 and ALT is 44. DISCHARGE ADVICE AND MEDICATIONS: 1. Diet is cardiac. 2. Activity limited until followup. 3. Follow up with primary physician in 1 to 2 days. 4. 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 MEDICATIONS: 1. Lipitor 40 mg at bedtime. 2. Loratadine 10 mg at bedtime. 3. Multivitamins 1 p.o. daily. 4. Pitcher 5 mg q.6 p.r.n. 5. Protonix 40 mg p.o. b.i.d. 6. Zofran 4 mg q.8 p.r.n. MMODL / IJN: [id number] /
== END 2020-01-15 16:15 | disposition home or self-care (01) | DRG 439 ==
LOC: EC 12:38 → 6PED 15:31 → 5NMEDONC 01-13 20:53
PROVIDERS: ADMIT Hospitalist; ATTEND Hospitalist
DX: K85.10 Biliary acute pancreatitis without necrosis or infection (principal); K80.51 Calculus of bile duct without cholangitis or cholecystitis with obstruction; E78.5 Hyperlipidemia, unspecified; Z96.641 Presence of right artificial hip joint; K80.20 Calculus of gallbladder without cholecystitis without obstruction; M19.90 Unspecified osteoarthritis, unspecified site; Z96.1 Presence of intraocular lens; Z79.899 Other long term (current) drug therapy; Z98.41 Cataract extraction status, right eye; Z82.49 Family history of ischemic heart disease and other diseases of the circulatory system; Z90.89 Acquired absence of other organs; Z80.52 Family history of malignant neoplasm of bladder; Z83.79 Family history of other diseases of the digestive system; Z82.61 Family history of arthritis
CPT/HCPCS: 36415; 74177; 76705; 80053; 81003; 82150; 82550; 83605; 83690; 84484; 85025; 85027; 96361; 96374; 96375; 99285